=== PATIENT | male | born 1975 | race Two or more races ===

== ENCOUNTER 2018-02-06 08:03 | Outpatient (CLI) | payer OTHER ==
[2018-02-06] MEDS ORDERED: GADOBUTROL 15 MMOL/15 ML VIAL ONE (08:08)
[2018-02-06] MEDS ORDERED: GADOBUTROL 15 MMOL/15 ML VIAL IVP ONE (08:46)
--- NOTE | 2018-02-07 19:52 | MRI Report ---
Procedure Date: 02/06/2018 Accession Number: [id number] / [id number] Procedure: MRI - Hand RT W/WO CPT Code: FULL RESULT: EXAM: RIGHT HAND MRI WITHOUT AND WITH CONTRAST EXAM DATE: 02/06/2018 09:15 AM. CLINICAL HISTORY: Localized swelling, mass, lump, unspecified upper. "Small lump dorsal aspect third digit indicated by marker; size changes over time." COMPARISON: None. TECHNIQUE: Multiplanar, multisequence T1-weighted and fluid-sensitive sequences of the hand before and after administration of intravenous contrast. IV contrast: 11 cc Gadavist. Other: None. FINDINGS: Bones: No fractures or subluxations. No marrow edema or abnormal enhancement. No bone lesions. Cartilage: The articular cartilage is unremarkable. Ligaments: The visualized collateral ligaments are intact. Tendons: Flexor mechanism is unremarkable. The extensor mechanism is intact. The central slip insertion at the base of the middle phalanx third digit is unremarkable. Skin markers placed at the dorsal aspect mid to distal shaft of proximal phalanx third digit (image 10 series 901 and image 20 series 501). Negative for ganglion cyst or focal mass. There is mild asymmetric thickening radial aspect of the extensor quintanilla distal to the skin marker (image 24 series 501). Musculature: No edema or fatty atrophy. Other: No joint effusions or synovitis. The subcutaneous tissues are unremarkable. No abscess or cellulitis. IMPRESSION: 1. Negative for a focal mass corresponding with the area of interest indicated by the skin marker dorsal aspect proximal phalanx third digit. 2. The third digit extensor mechanism is intact. 3. There is mild asymmetric thickening radial aspect extensor quintanilla or lateral slip extensor digitorum comminus tendon distal to the skin marker (image 23 series 701). [facility] MUSCULOSKELETAL RADIOLOGY SECTION
== END 2018-02-06 08:04 | disposition home or self-care (01) ==
LOC: DI 08:03
PROVIDERS: ATTEND Orthopaedic Surgery
DX: R22.31 Localized swelling, mass and lump, right upper limb (principal)
CPT/HCPCS: 73220; A9585

== ENCOUNTER 2020-10-07 13:09 | Outpatient (CLI) | payer OTHER | END 2020-10-07 13:10 | disposition home or self-care (01) | LOC: RT 13:09 | PROVIDERS: ATTEND Family Medicine | DX: R07.89 Other chest pain (principal); Z87.891 Personal history of nicotine dependence | CPT/HCPCS: 94010 ==

== ENCOUNTER 2021-02-01 13:38 | Emergency (ER) | payer OTHER ==
[2021-02-01 14:02] LABS: BASOPHILS % (AUTO) 0.7 %; EOSINOPHILS # (AUTO) 0.1 10^3/uL (0.0-0.7); EOSINOPHILS % (AUTO) 1.7 %; HGB - HEMOGLOBIN 20.4 g/dL (14.0-18.0); LYMPHOCYTES # (AUTO) 1.3 10^3/uL (1.5-3.5); LYMPHOCYTES % (AUTO) 22.7 %; MEAN CORPUSCULAR HEMOGLOBIN 32.6 pg (27.0-31.0); MEAN CORPUSCULAR HGB CONC 35.8 g/dL (32.0-36.0); MEAN CORPUSCULAR VOLUME 91.1 fL (80.0-94.0); MEAN PLATELET VOLUME 12.2 fL (7.4-11.4); MONOCYTES # (AUTO) 0.5 10^3/uL (0.0-1.0); NEUTROPHILS # (AUTO) 3.8 10^3/uL (1.5-6.6); NEUTROPHILS % (AUTO) 66.6 %; PLT - PLATELET COUNT 205 10^3/uL (130-450); RED BLOOD COUNT 6.26 10^6/uL (4.70-6.10); RED CELL DISTRIBUTION WIDTH 12.4 % (12.0-15.0); WHITE BLOOD COUNT 5.7 x10^3/uL (4.8-10.8)
--- NOTE | 2021-02-01 14:08 | XRAY Report ---
PROCEDURE: Chest 1 View X-Ray INDICATIONS: Chest pain TECHNIQUE: One view of the chest was acquired. COMPARISON: None FINDINGS: Surgical changes and devices: None. Lungs and pleura: No pleural effusions or pneumothorax. Lungs are clear. Mediastinum: Mediastinal contours appear normal. Heart size is normal. Bones and chest wall: No suspicious bony lesions. Overlying soft tissues appear unremarkable. IMPRESSION: Normal chest x-ray Reviewed by: Ghanshyam Richmond MD on 02/01/2021 1:06 PM SHELLIE Approved by: Ghanshyam Richmond MD on 02/01/2021 1:06 PM AKJARED Station ID: [id number]
[2021-02-01] MEDS ORDERED: SODIUM CHLORIDE 0.9% 1,000 ML IV STA (14:15)
[2021-02-01 14:35] LABS: ALBUMIN 4.2 g/dL (3.2-5.5); ALBUMIN/GLOBULIN RATIO 1.1 (1.0-2.2); CALCIUM 9.5 mg/dL (8.5-10.3); CREATININE 0.8 mg/dL (0.6-1.2); POTASSIUM 4.1 mmol/L (3.5-5.0)
--- NOTE | 2021-02-01 14:38 | ED Physician Documentation ---
PD HPI CHEST PAIN - Stated complaint Stated Complaint: CHEST PAIN - Chief complaint Chief Complaint: Cardiac - History obtained from History obtained from: Patient - History of Present Illness Timing - details: Waxing and waning Pain level max: 5 Pain level now: 2 Quality: Pressure, Aching Location: Left chest Radiation: No: Jaw, Neck, Back, Abdominal, Left upper extremity, Right upper extremity Associated symptoms: Nausea. No: Shortness of air, Diaphoresis, Vomiting, Feeling faint / dizzy, General Weakness, Palpitations Similar symptoms before: Has not had sx before - Additional information Additional information: 45-year-old male with a history of polycythemia vera and diabetes presents to the emergency department with left-sided chest pain ongoing for the past 3 days, more constant today. Described as a squeezing type pain. Nonradiating. Nothing makes it better or worse. Has not had similar symptoms previously. No cardiac history. Has never seen a market research specialist. Review of Systems Ten Systems: 10 systems reviewed and negative Constitutional: denies: Fever, Chills GI: denies: Nausea, Vomiting, Diarrhea Skin: denies: Rash Musculoskeletal: denies: Neck pain, Back pain Neurologic: denies: Headache PD PAST MEDICAL HISTORY - Past Medical History Past Medical History: Yes Cardiovascular: Hypertension Endocrine/Autoimmune: Type 2 diabetes Other Past Medical History: polycythemia vera - Present Medications Home Medications: Ambulatory Orders Medication Instructions Recorded Confirmed Dulaglutide [Trulicity] 1 ml SQ DAILY 02/01/21 02/01/21 Fexofenadine HCl 1 tab PO DAILY 02/01/21 02/01/21 Losartan Potassium 1 tab PO DAILY 02/01/21 02/01/21 Metoclopramide [Reglan] 1 tab PO QID 02/01/21 02/01/21 Omeprazole [PriLOSEC] 1 tab PO DAILY 02/01/21 02/01/21 Tadalafil [Cialis] 1 tab PO DAILY 02/01/21 02/01/21 Venlafaxine ER [Effexor ER] 1 tab PO DAILY 02/01/21 02/01/21 - Allergies Allergies/Adverse Reactions: Allergies Allergy/AdvReac Type Severity Reaction Status Date / Time No Known Drug Allergies Allergy Verified 02/01/21 13:44 - Living Situation Living Situation: reports: With family Living Arrangement: reports: At home - Social History Does the pt have substance abuse?: No - Family History Family history: reports: Non contributory PD ED PE NORMAL - Vitals Vital signs reviewed: Yes - General General: Alert and oriented X 3, No acute distress, Well developed/nourished - HEENT HEENT: PERRL, Moist mucous membranes - Neck Neck: Supple, no meningeal sign - Cardiac Cardiac: RRR, No murmur, Strong equal pulses - Respiratory Respiratory: No respiratory distress, Clear bilaterally - Abdomen Abdomen: Soft, Non tender, Non distended - Derm Derm: Warm and dry, No rash - Extremities Extremities: No edema, No calf tenderness / cord - Neuro Neuro: Alert and oriented X 3, 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, No motor deficit, No sensory deficit, Normal speech - Psych Psych: Normal mood, Normal affect Results - Vitals Vitals: Vital Signs - 24 hr 02/01/21 02/01/21 02/01/21 13:44 14:10 14:58 Temperature 36.6 C Heart Rate 96 102 H 85 Respiratory 18 17 14 Rate Blood Pressure 187/94 H 162/105 H 140/110 H O2 Saturation 99 97 98 02/01/21 02/01/21 02/01/21 15:00 15:30 16:00 Temperature Heart Rate 83 85 89 Respiratory 15 14 15 Rate Blood Pressure 133/90 H 154/105 H 149/100 H O2 Saturation 97 99 99 02/01/21 02/01/21 02/01/21 16:30 17:28 17:30 Temperature Heart Rate 89 94 92 Respiratory 18 15 13 Rate Blood Pressure 146/100 H 140/104 H 147/91 H O2 Saturation 99 97 96 02/01/21 18:00 Temperature Heart Rate 93 Respiratory 13 Rate Blood Pressure 146/101 H O2 Saturation 98 Oxygen O2 Source Room air - EKG (time done) 1344 Rate: Rate (enter#) (94) Rhythm: NSR Reeds: Other (posterior axis) Intervals: Normal PA QRS: Normal Ischemia: Normal ST segments - Labs Labs: Laboratory Tests 02/01/21 02/01/21 02/01/21 13:57 14:14 14:14 WBC 5.7 RBC 6.26 H Hgb 20.4 H Hct 57.0 H MCV 91.1 MCH 32.6 H MCHC 35.8 RDW 12.4 Plt Count 205 MPV 12.2 H Neut # (Auto) 3.8 Lymph # (Auto) 1.3 L [place] # (Auto) 0.5 Eos # (Auto) 0.1 Baso # (Auto) 0.0 Absolute Nucleated RBC 0.00 Nucleated RBC % 0.0 PT INR APTT Sodium 135 Potassium 4.1 Chloride 100 L Carbon Dioxide 22 Anion Gap 13.0 BUN 16 Creatinine 0.8 Estimated GFR (MDRD) 104 Glucose 335 H Calcium 9.5 Total Bilirubin 1.0 AST 22 ALT 43 Alkaline Phosphatase 106 Troponin I High Sens 112.4 H* Total Protein 8.0 Albumin 4.2 Globulin 3.8 Albumin/Globulin Ratio 1.1 Lipase 30 Nasal Adenovirus (PCR) Nasal B. parapertussis DNA (PCR) Nasal Coronavir 229E PCR Nasal Coronavir HKU1 PCR Nasal Coronavir NL63 PCR Nasal Coronavir OC43 PCR Nasal Enterovir/Rhinovir PCR Nasal Influenza B PCR Nasal Influenza A PCR Nasal Parainfluen 1 PCR Nasal Parainfluen 2 PCR Nasal Parainfluen 3 PCR Nasal Parainfluen 4 PCR Nasal RSV (PCR) Nasal B.pertussis DNA PCR Nasal C.pneumoniae (PCR) Jose Miguel Human Metapneumo PCR Nasal M.pneumoniae (PCR) Nasal SARS-CoV-2 (PCR) 02/01/21 02/01/21 15:16 15:24 WBC RBC Hgb Hct MCV MCH MCHC RDW Plt Count MPV Neut # (Auto) Lymph # (Auto) [place] # (Auto) Eos # (Auto) Baso # (Auto) Absolute Nucleated RBC Nucleated RBC % PT 12.7 H INR 1.1 APTT 27.0 Sodium Potassium Chloride Carbon Dioxide Anion Gap BUN Creatinine Estimated GFR (MDRD) Glucose Calcium Total Bilirubin AST ALT Alkaline Phosphatase Troponin I High Sens Total Protein Albumin Globulin Albumin/Globulin Ratio Lipase Nasal Adenovirus (PCR) NOT DETECTED Nasal B. parapertussis DNA (PCR) NOT DETECTED Nasal Coronavir 229E PCR NOT DETECTED Nasal Coronavir HKU1 PCR NOT DETECTED Nasal Coronavir NL63 PCR NOT DETECTED Nasal Coronavir OC43 PCR NOT DETECTED Nasal Enterovir/Rhinovir PCR NOT DETECTED Nasal Influenza B PCR NOT DETECTED Nasal Influenza A PCR NOT DETECTED Nasal Parainfluen 1 PCR NOT DETECTED Nasal Parainfluen 2 PCR NOT DETECTED Nasal Parainfluen 3 PCR NOT DETECTED Nasal Parainfluen 4 PCR NOT DETECTED Nasal RSV (PCR) NOT DETECTED Nasal B.pertussis DNA PCR NOT DETECTED Nasal C.pneumoniae (PCR) NOT DETECTED Jose Miguel Human Metapneumo PCR NOT DETECTED Nasal M.pneumoniae (PCR) NOT DETECTED Nasal SARS-CoV-2 (PCR) NOT DETECTED - Rads (name of study) cxr Radiology: Final report received, EMP read contemporaneously, See rad report (normal cxr) PD MEDICAL DECISION MAKING - ED course Complexity details: reviewed results, re-evaluated patient, considered differential, d/w patient ED course: Patient with an NSTEMI. Pain resolved in the emergency department. Has never seen a market research specialist or had any cardiac history in the past. No beds available at [facility], [facility] in [facility] in [place]. [facility] in [place] does have a bed. Dr. Clark, cardiology and Dr. Smith, hospitalist graciously accepted in transfer. Patient given aspirin and started on a heparin drip here. COBRA forms completed. This document was made in part using voice recognition software. While efforts are made to proofread this document, sound alike and grammatical errors may occur. Departure - Departure Disposition: 02 Transfer Acute Care Hosp Clinical Impression: NSTEMI (non-ST elevated myocardial infarction), Hyperglycemia, Polycythemia Chest pain Qualifiers: Chest pain type: unspecified Qualified Code(s): R07.9 - Chest pain, unspecified Condition: Stable Discharge Date/Time: 02/01/21 19:25
[2021-02-01] MEDS ORDERED: ASPIRIN CHEW 81 MG TABLET PO STA (15:05)
[2021-02-01 15:30] LABS: INR 1.1 (0.8-1.2); PT - PROTHROMBIN TIME 12.7 secs (9.9-12.6)
[2021-02-01] MEDS ORDERED: LORazepam 2 MG/ML VIAL IVP STA (15:42)
[2021-02-01] MEDS ORDERED: HEPARIN 25000UNITS/500ML (D5W) 25,000 UNIT/500 ML BAG IV SCH (16:00)
[2021-02-01 16:22] LABS: CORONAVIRUS 229E-RESP PCR NOT DETECTED; CORONAVIRUS HKU1-RESP PCR NOT DETECTED; CORONAVIRUS NL63-RESP PCR NOT DETECTED
[2021-02-01 16:23] LABS: B. PARAPERTUSSIS- RESP PCR PAN NOT DETECTED; B. PERTUSSIS- RESP PCR PANEL NOT DETECTED; C. PNEUMONIAE- RESP PCR PANEL NOT DETECTED; CORONAVIRUS OC43-RESP PCR NOT DETECTED; HUMAN METAPNEUMOVIRUS NOT DETECTED; INFLUENZA A- RESP PCR PANEL NOT DETECTED; INFLUENZA B - RESP PCR PANEL NOT DETECTED; M. PNEUMONIAE- RESP PCR PANEL NOT DETECTED; PARAINFLUENZA VIRUS 1 NOT DETECTED; PARAINFLUENZA VIRUS 2 NOT DETECTED; PARAINFLUENZA VIRUS 3 NOT DETECTED; PARAINFLUENZA VIRUS 4 NOT DETECTED; RHINOVIRUS/ENTEROVIRUS NOT DETECTED; RSV- RESP PCR PANEL NOT DETECTED; SARS-CoV-2 -RESP PCR PANEL NOT DETECTED
[2021-02-01 18:36] VITALS: BP 146/101
== END 2021-02-01 19:25 | disposition short-term general hospital (02) ==
LOC: ED 13:38
DX: I21.4 Non-ST elevation (NSTEMI) myocardial infarction (principal); I10 Essential (primary) hypertension; E11.9 Type 2 diabetes mellitus without complications; Z79.899 Other long term (current) drug therapy; Z20.822 Contact with and (suspected) exposure to COVID-19
CPT/HCPCS: 0202U; 36415; 71045; 80053; 83690; 84484; 85025; 85610; 85730; 93005; 96361; 96374; 96375; 99285; A9270; J2060

== ENCOUNTER 2022-04-08 10:50 | Outpatient (CLI) | payer OTHER | END 2022-04-08 10:51 | disposition home or self-care (01) | LOC: RT 10:50 | PROVIDERS: ATTEND Family Medicine | DX: R07.89 Other chest pain (principal); R05.9 Cough, unspecified; R06.02 Shortness of breath; Z77.29 Contact with and (suspected) exposure to other hazardous substances | CPT/HCPCS: 94010; 94727; 94729 ==

== ENCOUNTER 2023-11-17 16:05 | Outpatient (CLI) | payer OTHER ==
--- NOTE | 2023-11-17 18:34 | MRI Report ---
PROCEDURE: Cervical Spine WO INDICATIONS: CERVICAL RADICULOPATHY TECHNIQUE: Noncontrast sagittal T1 spin echo and T2 fast spin echo, sagittal STIR, foraminal oblique sagittal T2 fast spin echo, and axial gradient echo or T2 fast spin echo through the cervical spine. COMPARISON: None. FINDINGS: Image quality: There is artifact associated with the metallic hardware. Motion artifact is noted. Alignment and Curvature: There is is overall straightening of the normal cervical lordosis. Minimal retrolisthesis can be seen at the C4-C5 and the C6-C7 levels. Bone Marrow: Marrow demonstrates normal overall signal. Spinal Cord: Visualized spinal cord has normal size and signal. No cerebellar tonsillar herniation. Paraspinous Soft Tissues: No paravertebral masses. Prevertebral soft tissues are normal in thicknes s. C2-C3: The disc height is well-preserved. There is loss of disc signal seen. Mild disc osteophyte complex is seen. Moderate facet hypertrophy is seen. Moderate to severe bilateral neuroforaminal narrowing can be seen. Mild to moderate central canal narrowing is seen. C3-C4: Mild loss of disc height and disc signal are seen. Mild to moderate disc osteophyte complex is seen. There is moderate right-sided and mild left-sided facet hypertrophy. Moderate to severe bila teral neuroforaminal narrowing is seen. Moderate central canal narrowing is seen. Associated mass e ffect is seen upon the ventral spinal cord. C4-C5: Moderate to severe loss of disc height and disc signal can be seen. Moderate disc osteophyte complex is seen, which is eccentric to the right. At least moderate facet hypertrophy can be seen. Th ere is moderate to severe bilateral neuroforaminal narrowing seen. Moderate to severe central canal n arrowing is seen, with associated ventral cord flattening. C5-C6: Anterior fixation hardware can be seen at this level. Vertebral body fusion can be seen at th is level. Mild to moderate disc osteophyte complex is seen. There is moderate right-sided and mild le ft-sided facet hypertrophy. There is moderate bilateral neuroforaminal narrowing seen, right worse th an left. Minimal to mild central canal narrowing is seen. C6-C7: . At least moderate loss of disc height and disc signal can be seen. Reactive marrow endplate changes are seen anteriorly, which are hyperintense on T1-weighted and T2-weighted imaging, without significant increased STIR signal. 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 Moderate disc osteophyte complex is seen, with a central disc osteophyte prot rusion. There is moderate right-sided and mild left-sided facet hypertrophy. There is moderate to sev ere bilateral neuroforaminal narrowing seen. Moderate central canal narrowing is seen. Associated mass effect is seen upon the ventral spinal cord. C7-T1: Mild loss of disc height and disc signal are seen. Mild disc osteophyte complex is seen. Mild facet hypertrophy is seen. No significant neural foraminal or central canal narrowing can be s een. IMPRESSION: Prior anterior fixation hardware seen at C5-C6. Underlying degenerative changes are seen, which are worst at C4-C5 and at C6-C7. Reviewed by: Ector Plummer MD on 11/17/2023 5:32 PM SHELLIE Approved by: Ector Plummer MD on 11/17/2023 5:32 PM SHELLIE Station ID: [id number]
== END 2023-11-17 16:06 | disposition home or self-care (01) ==
LOC: DI 16:05
PROVIDERS: ATTEND Family Medicine
DX: M47.812 Spondylosis without myelopathy or radiculopathy, cervical region (principal)